=== PATIENT | female | born 1940 | race American Indian/Alaskan Native ===

== ENCOUNTER 2022-12-19 16:35 | Emergency (ER) | payer OTHER ==
[~2022-12-19] VITALS: Ht 149.9 cm; Wt 40.8 kg
[2022-12-19] MEDS ORDERED: NAMENDA XR21 MG PO (16:48)
[2022-12-19] MEDS ORDERED: ARICEPT5 MG PO (16:50)
== END 2022-12-19 21:29 | disposition home or self-care (01) ==
LOC: ER 16:35
DX: R06.02 Shortness of breath (principal); R09.81 Nasal congestion; G30.9 Alzheimer's disease, unspecified; F02.80 Dementia in other diseases classified elsewhere, unspecified severity, without behavioral disturbance, psychotic disturbance, mood disturbance, and anxiety